=== PATIENT | female | born 2000 ===

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

== ENCOUNTER 2018-07-27 09:20 | Inpatient (IN) | payer MEDICAID, OTHER ==
[2018-07-27] MEDS: Lactated Ringer's 1,000 ML IV ONE ×2 (10:05→11:30)
[2018-07-27 10:18] VITALS: BMI 36.6
[2018-07-27] MEDS ORDERED: cefOXitin IV 1 gm in Dextrose 1 GM/50 ML BAG IVPB ONE (10:30)
[2018-07-27] MEDS ORDERED: Oxytocin 30 UNIT 30 UNITS/500 ML BAG IV ONE ×2 (10:35→10:40)
[2018-07-27] MEDS ORDERED: OXYTOCIN/0.9 % NS 20 UNIT/1,000 ML BAG IV SCH ×2 (10:45→18:43)
[2018-07-27 10:47] LABS: BASO # 0.1 K/uL (0.0-0.2); BASO % 0.6 % (0.0-2.0); EOS % 0.2 % (0.0-4.0); HEMOGLOBIN 10.7 g/dL (12.0-16.0); LYMPH # 1.4 K/uL (1.0-4.3); MEAN CELL VOLUME 83.3 fl (81.0-99.0); MEAN CORPUSCULAR HEMOGLOBIN 27.6 pg (27.0-31.0); MEAN CORPUSCULAR HGB CONC 33.1 g/dL (33.0-37.0); MEAN PLATELET VOLUME 9.5 fl (7.2-11.7); MONO # 0.9 K/uL (0.0-0.8); MONO % 8.2 % (0.0-10.0); NEUT # 8.4 K/uL (1.8-7.0); NRBC % 0.1 % (0.0-0.0); RBC 3.88 Mil/uL (3.80-5.20); RED CELL DISTRIBUTION WIDTH 15.3 % (11.5-14.5); WHITE BLOOD COUNT 10.7 K/uL (4.8-10.8)
[2018-07-27] MEDS ORDERED: Fentanyl/Bupivacaine HCl 250 ML EPI ONE (10:47)
[2018-07-27] MEDS ORDERED: Lidocaine 2% PF (10 ml) Amp ONE (15:20)
[2018-07-27] MEDS ORDERED: EPINEPHrine 1 mg/ml (1:1000) Inj ONE ×2 (15:22)
[2018-07-27] MEDS ORDERED: Morphine 1 mg/ml preservative-free Inj(Duramorph) ONE (15:50)
--- NOTE | 2018-07-27 16:45 | OBADHP ---
Datetime: 07/27/2018 16:38 Admit Comment, IP Provider: iup at term previous c section in labor for repeat section uneventful pr enatal course Pelvic Type - PN: Adequate Extremities - PN: Normal Abdomen - PN: Normal Back - PN: Normal Breast - PN: Normal Lungs - PN: Normal Heart - PN: Normal Thyroid - PN: Normal Neurologic - PN: Normal HEENT - PN: Normal General - PN: Normal FHR - Baseline A Provider: 150 Contraction Comments Provider: q5 Gestation - Est Wks by US: 39+ Vital Signs Provider: Reviewed; Within Normal Limits IP Chief Complaint: Uterine contractions NICHD Variability Prov Fetus A: Moderate 6-25bpm NICHD Accel Fetus A IP Provider: 10X10 FHR Category Provider Fetus A: Category I NICHD Decel Fetus A IP Provider: None Dilatation, Provider: 8 Effacement, Provider: 100 Station, Provider: -2 Genitourinary Exam: Normal DTRs - PN: Normal EGA AdmitDate IP: 39.2 IP Adm Impression: Term, intrauterine ; Active labor; Intact Membranes IP Admit Plan: Admit to unit; Initiate Section protocol
--- NOTE | 2018-07-27 16:48 | OBDS ---
MATERNAL INFORMATION Estimated Blood Loss (ml): 800ml Maternal Complications: None Provider Comments: delivery of live baby boy 9/9 mecnium fluid cord with 3 vessels placenta in tact tubes and ovaries wnl LABOR SUMMARY EDC: 08/01/2018 00:00 No. Babies in Womb: 1 Attempted: No Labor Anesthesia: Epidural LABOR INFORMATION Reason for Induction: Not Applicable Onset of Labor: 07/27/2018 06:00 Oxytocin: N/A Group B Beta Strep: Negative Steroids Given: None Reason Steroids Not Administered: Not Applicable MEMBRANES Membranes Rupture Method: Artificial Rupture of Membranes: 07/27/2018 15:53 Length of Rupture (hrs): 0.02 Amniotic Fluid Color: Heavy Meconium Amniotic Fluid Amount: Large Amniotic Fluid Odor: None STAGES OF LABOR Stage 3 hrs: 0 Stage 3 min: 1 Total Time in Labor hrs: 9 Total Time in Labor min: 55 VAGINAL DELIVERY Episiotomy: None Laceration Extension: N/A Laceration Type: None CSECTION DELIVERY Primary Indication: Repeat Elective Secondary Indication: Repeat Elective CSection Urgency: Elective CSection Incidence: Repeat Labor: Labor Elective: Elective CSection Incision: Lower Uterine Transverse BABY A INFORMATION Delivery Date/Time: 07/27/2018 15:54 Method of Delivery: Born in Route : No : N/A Forceps: N/A Vacuum Extraction: N/A Shoulder Dystocia : No SHOULDER DYSTOCIA BABY A Infant Delivery Date/Time: 07/27/2018 15:54 PRESENTATION/POSITION BABY A Presentation: Cephalic Cephalic Presentation: Vertex Breech Presentation: N/A PLACENTA INFORMATION BABY A Placenta Delivery Time : 07/27/2018 15:55 Placenta Method of Delivery: Spontaneous Placenta Status: Delivered SCORES BABY A Heart Rate 1 min: >100 bpm Resp Effort 1 min: Good Cry Reflex Irritability 1 min: Cough or Sneeze or Pulls Away Muscle Tone 1 min: Active Motion Color 1 min: Blue/Pale Resuscitation Effort 1 min: Tactile Stimulation; PPV/NCPAP SCORE 1 MIN: 8 Heart Rate 5 min: >100 bpm Resp Effort 5 min: Good Cry Reflex Irritability 5 min: Cough or Sneeze or Pulls Away Muscle Tone 5 min: Active Motion Color 5 min: Body [place], Extremities Blue Resuscitation Effort 5 min: Tactile Stimulation; PPV/NCPAP SCORE 5 MIN: 9 INFORMATION BABY A Gestational Age at Delivery: 39.0 Gestational Status: Term Infant Outcome : Liveborn Infant Condition : Stable Infant Sex: Male IDENTIFICATION/MEDS BABY A ID Band Number: [id number] ID Band Location: Left Leg; Left Arm WEIGHT/LENGTH BABY A Birthweight (gms): 2840 Weight (lb): 6 Weight (oz): 4 CORD INFORMATION BABY A No. Cord Vessels: 3 Nuchal Cord : N/A Cord Blood Taken: N/A Infant Suction: Mouth; Nose ASSESSMENT BABY A Complications: Decreased Variability; Multiple Late Decels; Meconium Physical Findings at Delivery: Within Normal Limits Infant Respirations: Intercostal Retractions Building Drafting Officer/ALS Called : No Infant Care By: Dr. Michel/Juwan Transferred To: Nursery
[2018-07-27] MEDS ORDERED: Bisacodyl 5mg EC Tab PO PRN ×2 (16:49→18:43)
[2018-07-27] MEDS ORDERED: Oxycodone/Acetaminophen 5/325 mg Tab PO PRN ×4 (16:49→18:43)
[2018-07-27] MEDS ORDERED: Acetaminophen-Codeine 300/30 mg Tab PO PRN ×2 (16:49→18:43)
[2018-07-28] MEDS ORDERED: Lactated Ringer's 1,000 ML IV SCH (01:00)
[2018-07-28 06:38] LABS: MEAN CELL VOLUME 84.6 fl (81.0-99.0); MEAN CORPUSCULAR HEMOGLOBIN 27.6 pg (27.0-31.0); MEAN CORPUSCULAR HGB CONC 32.6 g/dL (33.0-37.0); RBC 3.27 Mil/uL (3.80-5.20); WHITE BLOOD COUNT 13.4 K/uL (4.8-10.8)
--- NOTE | 2018-07-28 08:29 | OP ---
PROCEDURE DATE: 07/27/2018 PREOPERATIVE DIAGNOSIS: Term , previous section, in labor. POSTOPERATIVE DIAGNOSIS: Term , previous section, in labor. SURGEON: Jonnathan Domingo MD PEDIATRIC DENTAL HYGIENIST: Ke Huang MD ANESTHESIA ADMINISTERED BY: Russ Mittal MD PROCEDURE: Repeat low-transverse . FINDINGS: Term size uterus, live baby boy. Apgars 9 and 9. Meconium fluid, tubes and ovaries within normal limits. ESTIMATED BLOOD LOSS: 800 mL. DESCRIPTION OF PROCEDURE: With the patient in the supine position and under epidural anesthesia, the patient was prepped and draped in the usual sterile manner. Dr. Huang was assisting in the preparation of the surgery. A low transverse incision was made and then taken down to the fascia in layers. Fascia was incised and extended bilaterally. The muscles were from the fascia by sharp dissection. Dr. Huang was doing his side, and I am doing my side. After this was done, the muscles were from the fascia by sharp dissection. Peritoneum was grasped, incised, and extended vertically. Upon entering the abdominal pelvic cavity, there were some adhesions visualized. A low transverse incision was then made in the uterus and extended bilaterally. Baby was removed without any complication, and given to the manager inpatient who resuscitated. After this was done, the uterus was exteriorized, cleaned, and then closed in 2 layers with 1 Vicryl maintaining hemostasis. Following this, the pelvic cavity was irrigated until clean. Uterus was repositioned and peritoneum was grasped and closed with 1 Vicryl. Muscles reapproximated with 1 Vicryl. After this, the fascia was closed with 2-[address] Huang doing his half and I am doing my half, starting at each end and finished the midline. The subcutaneous layer was approximated with 2-0 plain and the skin was closed with harry. The patient tolerated the procedure well and was in satisfactory condition on the way to recovery room. Jonnathan Domingo MD
[2018-07-28] MEDS ORDERED: Multivitamin With Minerals Tab PO SCH (09:00)
[2018-07-28] MEDS ORDERED: Influenza Vaccine (5 YR UP)/PF 60 MCG/0.5 ML SYR IM ONE (09:00)
[2018-07-28] MEDS: Multivitamin With Minerals Tab PO SCH (09:06)
--- NOTE | 2018-07-28 09:14 | OBPPN ---
Datetime: 07/28/2018 09:09 PP Pain Prov: Within normal limits PP Nausea Prov: Denies PP Flatus Prov: Yes PP BM Prov: No PP Breasts Prov: Normal PP Heart Prov: Normal PP Lungs Prov: Normal PP Abdomen/Uterus Prov: Normal PP Lochia Prov: Normal PP Vulva/Perineum Prov: Normal PP CVA Tenderness Prov: Normal PP Extremities Prov: Normal PP C/S Incision Prov: Normal PP Progress Prov: Normal PP Impression Prov: Normal progression PP Plan Prov: Continue present management PP Progress Note Prov: stable pod1 romie block with assistance,increase diet to regular, may showe r ,encourage ambulation IP PP Procedures: None Vital Signs Provider PP: Reviewed; Within Normal Limits
[2018-07-29] MEDS: Multivitamin With Minerals Tab PO SCH (08:44)
--- NOTE | 2018-07-29 13:39 | OBPPN ---
Datetime: 07/29/2018 13:36 PP Pain Prov: Within normal limits PP Nausea Prov: Denies PP Flatus Prov: Yes PP BM Prov: No PP Breasts Prov: Normal PP Heart Prov: Normal PP Lungs Prov: Normal PP Abdomen/Uterus Prov: Normal PP Lochia Prov: Normal PP Vulva/Perineum Prov: Normal PP CVA Tenderness Prov: Normal PP Extremities Prov: Normal PP C/S Incision Prov: Normal PP Progress Prov: Normal PP Impression Prov: Normal progression PP Plan Prov: Continue present management PP Progress Note Prov: stable pod2 no complaints continue present care incision healing well (Annota tions: Data stored by CPN on behalf of user) IP PP Procedures: None Vital Signs Provider PP: Reviewed; Within Normal Limits
[2018-07-30] MEDS: Multivitamin With Minerals Tab PO SCH (09:27)
--- NOTE | 2018-07-30 10:48 | OBPPN ---
Datetime: 07/30/2018 10:42 PP Pain Prov: Within normal limits PP Pain Prov comment: no SOB, chest or leg pains PP Nausea Prov: Denies PP Flatus Prov: Yes PP BM Prov: No PP Breasts Prov: Normal PP Lungs Prov: Normal PP Abdomen/Uterus Prov: Abnormal PP Lochia Prov: Normal PP Vulva/Perineum Prov: Normal PP CVA Tenderness Prov: Normal PP Extremities Prov: Normal PP C/S Incision Prov: Normal PP Progress Prov: Normal PP Comments Phys Exam Prov: breast not engorged NT; Abd soft ND fundus firm below the umb Incision c lean and dry no suppt or discharge Ext no calf tenderness PP Impression Prov: Normal progression PP Plan Prov: Discharge PP Progress Note Prov: will give Dulcolax this am and for possible D/C this pm IP PP Procedures: None Vital Signs Provider PP: Reviewed
--- NOTE | 2018-07-30 10:50 | OBDCSUM ---
Datetime: 07/30/2018 10:46 Discharged to, Provider: Home Follow up at, Provider: Dr Domingo Disch Instr Activity: Bedrest; May be up to bathroom; May be up for meals; May Shower Disch Instr Diet: Regular Discharge Instructions, Provider: Routine instructions given Discharge Diagnosis, Provider: Term Delivered Discharge Time: 07/30/2018 10:46 Follow up in weeks, Provider: 1 wk Disch Referrals: None Contraception discussed, Prov: Yes Disch Activity Restrictions: No exercising; No lifting; No driving; Minimize walking; Minimize stair -climbing; No sexual activity; Nothing in vagina - [place], tampons, douche Discharge Comment, Provider: Continue PNC vit and iron Contraception after Delivery: Undecided
[2018-07-30 18:04] VITALS: BP 119/70; PULSE 84; RESP 20; TEMP 98.2; O2SAT 98
== END 2018-07-30 13:39 | disposition home or self-care (01) | DRG 371 ==
LOC: H.EROB2 09:20 → H.L&D 09:49 → H.EROB2 10:57 → H.OB/GYN 18:20
PROVIDERS: ADMIT Specialist; ATTEND Specialist
PROC: 10D00Z1 Extraction of Products of Conception, Low, Open Approach (ICD-10-PCS; principal; 2018-07-27)
PROC: 4A1HXCZ Monitoring of Products of Conception, Cardiac Rate, External Approach (ICD-10-PCS; 2018-07-27)
DX: O34.211 Maternal care for low transverse scar from previous cesarean delivery (principal); N85.8 Other specified noninflammatory disorders of uterus; Z3A.39 39 weeks gestation of pregnancy; Z37.0 Single live birth; O76 Abnormality in fetal heart rate and rhythm complicating labor and delivery; O77.0 Labor and delivery complicated by meconium in amniotic fluid